=== PATIENT | male | born 1985 | race Caucasian/White ===

== ENCOUNTER 2020-11-18 02:43 | Emergency (ER) | payer OTHER ==
[~2020-11-18] VITALS: Ht 170.2 cm; Wt 81.7 kg
[~2020-11-18 02:43] MED LIST: AZIT250 PO; Bactrim Ds Tab1 EACH PO; CEPH500 PO; CLIN150 PO; CLIN300 PO; CRUTCH4 USE; ERYT333ERA PO; ERYT500 PO; FURO40 PO; HYDACE5 PO; IBUHYD PO; IBUP600 PO; IBUP800 PO; IBUPROFEN/TYLENOL; MUPI2TC TOP; MUPI2TO TOP; NAPR220 PO; NAPR500 PO; NAPR500EC PO; OXYACE5T PO; PENVK500 PO; PERM5TC TOP; POTA10T PO; PRED10 PO; PRED20 PO; PROM25 PO; RXCLIN PO; RXOXYACE PO; SULTRIDS PO; TRAM50 PO; [UNRECOGNIZED DRUG - OTHER]
[2020-11-18] MEDS ORDERED: SUBOXONE 8 MG-1 EACH SL (03:22)
[2020-11-18] MEDS ORDERED: CEFP200 PO (03:33)
== END 2020-11-18 03:43 | disposition home or self-care (01) ==
LOC: ER 02:43
DX: L03.114 Cellulitis of left upper limb (principal); L03.312 Cellulitis of back [any part except buttock and flank]; F17.210 Nicotine dependence, cigarettes, uncomplicated; I10 Essential (primary) hypertension; Z88.4 Allergy status to anesthetic agent
CPT/HCPCS: 99282

== ENCOUNTER 2020-12-21 16:17 | Emergency (ER) | payer OTHER ==
[~2020-12-21] VITALS: Ht 172.7 cm; Wt 69.4 kg
[~2020-12-21 16:17] MED LIST changes: +CEFP200 PO; +SUBOXONE 8 MG-1 EACH SL
[2020-12-21 17:02] LABS: BASOPHILS ABSOLUTE AUTO 0.08 K/mm3 (0.00-0.23); BASOPHILS PERCENT AUTO 1 % (0-2); EOSINOPHILS ABSOLUTE AUTO 0.07 K/mm3 (0.00-0.68); EOSINOPHILS PERCENT AUTO 0 % (0-6); Hematocrit 52.1 % (37.0-53.0); IMMATURE GRAN ABSOLUTE AUTO 0.06 K/mm3 (0.00-0.10); IMMATURE GRAN PERCENT AUTO 0 % (0-1); LYMPHOCYTES ABSOLUTE AUTO 1.61 K/mm3 (0.84-5.20); LYMPHOCYTES PERCENT AUTO 10 % (21-46); MONOCYTES ABSOLUTE AUTO 1.19 K/mm3 (0.16-1.47); MONOCYTES PERCENT AUTO 7 % (4-13); Mean Corpuscular HGB 27.2 pg (26.0-34.0); Mean Corpuscular HGB Conc 30.7 g/dL (31.5-36.5); Mean Corpuscular Volume 89 fL (80-100); Mean Platelet Volume 10.8 fL (9.1-12.4); NEUTROPHILS ABSOLUTE AUTO 13.02 K/mm3 (1.96-9.15); NEUTROPHILS PERCENT AUTO 81 % (41-73); Platelet Count 381 K/mm3 (150-400); RDW Coefficient Variation 13.5 % (11.7-14.2); RDW Standard Deviation 44.1 fL (35.1-46.3); Red Blood Cell Count 5.88 M/mm3 (4.30-5.90); White Blood Cell Count 16.03 K/mm3 (4.00-11.30)
[2020-12-21 17:12] LABS: Alanine Aminotransfer (ALT/SGP 33 U/L (12-78); Albumin/Globulin Ratio 0.9 (0.8-1.8); Alk Phos 134 U/L (50-136); Anion Gap 2 mmol/L (6-16); Aspartate Aminotrans (AST/SGOT 28 U/L (12-37); Bilirubin, Total 0.6 mg/dL (0.1-1.0); Blood Urea Nitrogen 13 mg/dL (8-24); Bun/Creatinine Ratio 13.8 (12.0-20.0); CO2, Blood 33 mmol/L (21-32); Calcium, Blood 10.3 mg/dL (8.5-10.1); Chloride, Blood 101 mmol/L (98-108); Creatinine, Blood 0.94 mg/dL (0.60-1.20); Globulin, Blood 4.6 g/dL (2.2-4.0); Glomerular Filtration Rate >60 (60-); Glucose, Blood 50 mg/dL (70-99); Potassium, Blood 4.1 mmol/L (3.5-5.5); Sodium, Blood 136 mmol/L (136-145); Total Protein, Blood 8.6 g/dL (6.4-8.2)
[2020-12-21] MEDS ORDERED: Doxycycline Mo100 M1 PO (19:54)
[2020-12-21] MEDS ORDERED: IBU800 M1 PO (21:24)
[2020-12-21] MEDS ORDERED: OXYACE7.5T PO (21:24)
[2020-12-21] MEDS ORDERED: ONDA4ODT MM (21:24)
== END 2020-12-21 21:45 | disposition home or self-care (01) ==
LOC: ER 16:17
PROVIDERS: Physician Assistant
DX: N45.1 Epididymitis (principal); I10 Essential (primary) hypertension; Z88.4 Allergy status to anesthetic agent; Z79.899 Other long term (current) drug therapy; F17.210 Nicotine dependence, cigarettes, uncomplicated
CPT/HCPCS: 36415; 76870; 80053; 83690; 85025; 96374; 96375; 99284-25; A9270; J1885; J2405; J3010; J7030

== ENCOUNTER 2022-04-07 00:39 | Emergency (ER) | payer OTHER ==
[~2022-04-07] VITALS: Ht 170.2 cm; Wt 70.3 kg
[~2022-04-07 00:39] MED LIST changes: +Doxycycline Mo100 M1 PO; +IBU800 M1 PO; +ONDA4ODT MM; +OXYACE7.5T PO
[2022-04-07] MEDS ORDERED: CEPHALEXIN500 M2 PO (02:18)
== END 2022-04-07 03:03 | disposition home or self-care (01) ==
LOC: ER 00:39
DX: L03.115 Cellulitis of right lower limb (principal); I10 Essential (primary) hypertension; F17.210 Nicotine dependence, cigarettes, uncomplicated; Z88.4 Allergy status to anesthetic agent
CPT/HCPCS: A9270

== ENCOUNTER 2022-05-09 05:02 | Inpatient (IN) | payer OTHER ==
[~2022-05-09] VITALS: Ht 167.6 cm; Wt 68.5 kg
[~2022-05-09 05:02] MED LIST changes: +CEPHALEXIN500 M2 PO
[2022-05-09 07:01] LABS: BASOPHILS ABSOLUTE AUTO 0.06 K/mm3 (0.00-0.23); BASOPHILS PERCENT AUTO 0 % (0-2); EOSINOPHILS ABSOLUTE AUTO 0.08 K/mm3 (0.00-0.68); EOSINOPHILS PERCENT AUTO 1 % (0-6); Hematocrit 39.4 % (37.0-53.0); Hemoglobin 12.8 g/dL (13.5-17.5); IMMATURE GRAN ABSOLUTE AUTO 0.02 K/mm3 (0.00-0.10); IMMATURE GRAN PERCENT AUTO 0 % (0-1); LYMPHOCYTES ABSOLUTE AUTO 1.29 K/mm3 (0.84-5.20); LYMPHOCYTES PERCENT AUTO 9 % (21-46); MONOCYTES ABSOLUTE AUTO 1.04 K/mm3 (0.16-1.47); MONOCYTES PERCENT AUTO 7 % (4-13); Mean Corpuscular HGB Conc 32.5 g/dL (31.5-36.5); Mean Corpuscular Volume 86 fL (80-100); Mean Platelet Volume 10.3 fL (9.1-12.4); NEUTROPHILS ABSOLUTE AUTO 12.44 K/mm3 (1.96-9.15); NEUTROPHILS PERCENT AUTO 83 % (41-73); Platelet Count 245 K/mm3 (150-400); RDW Coefficient Variation 14.7 % (11.7-14.2); RDW Standard Deviation 46.9 fL (35.1-46.3); Red Blood Cell Count 4.57 M/mm3 (4.30-5.90); White Blood Cell Count 14.93 K/mm3 (4.00-11.30)
[2022-05-09 07:38] LABS: Albumin, Blood 3.9 g/dL (3.4-5.0); Albumin/Globulin Ratio 1.2 (0.8-1.8); Bilirubin, Total 0.6 mg/dL (0.1-1.0); Bun/Creatinine Ratio 34.9 (12.0-20.0); C-Reactive Protein, High Sens. 25.9 mg/L (0.000-3.000); Calcium, Blood 8.7 mg/dL (8.5-10.1); Creatinine, Blood 0.74 mg/dL (0.60-1.20); Globulin, Blood 3.2 g/dL (2.2-4.0); Potassium, Blood 3.6 mmol/L (3.5-5.5); Total Protein, Blood 7.1 g/dL (6.4-8.2)
[2022-05-09] MEDS ORDERED: DEPAKOTE500 M1 PO (10:34)
[2022-05-09] MEDS ORDERED: AMOX875 PO (15:28)
[2022-05-09] MEDS ORDERED: SULTRIDS PO (15:29)
[2022-05-09] MEDS ORDERED: BUSP5 PO (15:29)
[2022-05-09] MEDS ORDERED: Percocet 5-3251 EACH PO (15:30)
--- NOTE | 2022-05-09 15:38 | NUR ---
Discharge Summary A/O, discharging against medical advice. AMA form filled out and signed by patient. Reviewed d/c papers and meds faxed to [facility] per patient request. Escorted by [facility].
== END 2022-05-09 15:41 | disposition left against medical advice (07) | DRG 872 ==
LOC: ER 05:02 → MEDS 09:15
PROVIDERS: Emergency Medicine; ADMIT Family Medicine
DX: A41.9 Sepsis, unspecified organism (principal); L03.115 Cellulitis of right lower limb; F41.9 Anxiety disorder, unspecified; B19.20 Unspecified viral hepatitis C without hepatic coma; F17.210 Nicotine dependence, cigarettes, uncomplicated; F32.A Depression, unspecified; F11.90 Opioid use, unspecified, uncomplicated; I10 Essential (primary) hypertension; Z98.890 Other specified postprocedural states; Z88.4 Allergy status to anesthetic agent; Z79.2 Long term (current) use of antibiotics; Z79.899 Other long term (current) drug therapy
CPT/HCPCS: 36415; 73610; 80053; 83605; 85025; 85651; 86141; 87040; 96365; 96375; 99285-25; A9270; J1885; J7030

== ENCOUNTER 2022-10-22 19:32 | Emergency (ER) | payer OTHER ==
[~2022-10-22] VITALS: Ht 170.2 cm; Wt 70.3 kg
[~2022-10-22 19:32] MED LIST changes: +AMOCLA875 PO; +AMOX875 PO; +BUPRENORPHIN-N1 EAC1 SL; +BUSP5 PO; +DEPAKOTE500 M1 PO; +Percocet 5-3251 EACH PO
[2022-10-22] MEDS ORDERED: METH40 (22:08)
[2022-10-22] MEDS ORDERED: METH40 PO (22:09)
[2022-10-22] MEDS ORDERED: SULTRIDS PO (22:21)
== END 2022-10-22 22:43 ==
LOC: ER 19:32
DX: S61.401A Unspecified open wound of right hand, initial encounter (principal); S61.402A Unspecified open wound of left hand, initial encounter; I10 Essential (primary) hypertension; F17.200 Nicotine dependence, unspecified, uncomplicated; Z88.8 Allergy status to other drugs, medicaments and biological substances; Z86.14 Personal history of Methicillin resistant Staphylococcus aureus infection; X58.XXXA Exposure to other specified factors, initial encounter
CPT/HCPCS: A9270

== ENCOUNTER 2022-11-02 23:50 | Emergency (ER) | payer OTHER ==
[~2022-11-02] VITALS: Ht 170.2 cm; Wt 63.5 kg
[~2022-11-02 23:50] MED LIST changes: +METH40; +METH40 PO
[2022-11-03] MEDS ORDERED: AMOCLA875 PO (00:34)
[2022-11-03] MEDS ORDERED: IBUP800 PO (00:34)
== END 2022-11-03 00:56 | disposition home or self-care (01) ==
LOC: ER 23:50
DX: L03.011 Cellulitis of right finger (principal); I10 Essential (primary) hypertension; F17.200 Nicotine dependence, unspecified, uncomplicated; Z88.4 Allergy status to anesthetic agent; Z79.899 Other long term (current) drug therapy
CPT/HCPCS: 26010; 99283-25; A9270

== ENCOUNTER 2022-11-04 19:11 | Inpatient (IN) | payer OTHER ==
[~2022-11-04] VITALS: Ht 170.2 cm; Wt 68.4 kg
[2022-11-04 20:54] LABS: BASOPHILS ABSOLUTE AUTO 0.06 K/mm3 (0.00-0.23); BASOPHILS PERCENT AUTO 1 % (0-2); EOSINOPHILS ABSOLUTE AUTO 0.12 K/mm3 (0.00-0.68); EOSINOPHILS PERCENT AUTO 1 % (0-6); Hematocrit 38.8 % (37.0-53.0); Hemoglobin 12.3 g/dL (13.5-17.5); IMMATURE GRAN ABSOLUTE AUTO 0.04 K/mm3 (0.00-0.10); IMMATURE GRAN PERCENT AUTO 0 % (0-1); LYMPHOCYTES ABSOLUTE AUTO 1.74 K/mm3 (0.84-5.20); LYMPHOCYTES PERCENT AUTO 16 % (21-46); MONOCYTES ABSOLUTE AUTO 1.03 K/mm3 (0.16-1.47); MONOCYTES PERCENT AUTO 10 % (4-13); Mean Corpuscular HGB 27.1 pg (26.0-34.0); Mean Corpuscular HGB Conc 31.7 g/dL (31.5-36.5); Mean Corpuscular Volume 86 fL (80-100); Mean Platelet Volume 9.9 fL (9.1-12.4); NEUTROPHILS ABSOLUTE AUTO 7.86 K/mm3 (1.96-9.15); NEUTROPHILS PERCENT AUTO 72 % (41-73); Platelet Count 325 K/mm3 (150-400); RDW Coefficient Variation 13.7 % (11.7-14.2); RDW Standard Deviation 42.9 fL (35.1-46.3); Red Blood Cell Count 4.54 M/mm3 (4.30-5.90); White Blood Cell Count 10.85 K/mm3 (4.00-11.30)
[2022-11-04 21:22] LABS: Albumin, Blood 3.4 g/dL (3.4-5.0); Albumin/Globulin Ratio 0.9 (0.8-1.8); Bilirubin, Total 0.3 mg/dL (0.1-1.0); Bun/Creatinine Ratio 24.6 (12.0-20.0); Calcium, Blood 8.8 mg/dL (8.5-10.1); Creatinine, Blood 0.61 mg/dL (0.60-1.20); Globulin, Blood 3.8 g/dL (2.2-4.0); Potassium, Blood 3.9 mmol/L (3.5-5.5); Total Protein, Blood 7.2 g/dL (6.4-8.2)
[2022-11-05 06:25] LABS: BASOPHILS ABSOLUTE AUTO 0.05 K/mm3 (0.00-0.23); BASOPHILS PERCENT AUTO 1 % (0-2); EOSINOPHILS ABSOLUTE AUTO 0.13 K/mm3 (0.00-0.68); EOSINOPHILS PERCENT AUTO 2 % (0-6); Hematocrit 37.6 % (37.0-53.0); Hemoglobin 11.8 g/dL (13.5-17.5); IMMATURE GRAN ABSOLUTE AUTO 0.04 K/mm3 (0.00-0.10); IMMATURE GRAN PERCENT AUTO 1 % (0-1); LYMPHOCYTES ABSOLUTE AUTO 1.91 K/mm3 (0.84-5.20); LYMPHOCYTES PERCENT AUTO 24 % (21-46); MONOCYTES ABSOLUTE AUTO 0.84 K/mm3 (0.16-1.47); MONOCYTES PERCENT AUTO 11 % (4-13); Mean Corpuscular HGB 27.4 pg (26.0-34.0); Mean Corpuscular HGB Conc 31.4 g/dL (31.5-36.5); Mean Corpuscular Volume 87 fL (80-100); Mean Platelet Volume 10.3 fL (9.1-12.4); NEUTROPHILS ABSOLUTE AUTO 4.99 K/mm3 (1.96-9.15); NEUTROPHILS PERCENT AUTO 63 % (41-73); Platelet Count 308 K/mm3 (150-400); RDW Coefficient Variation 13.7 % (11.7-14.2); RDW Standard Deviation 43.8 fL (35.1-46.3); Red Blood Cell Count 4.31 M/mm3 (4.30-5.90); White Blood Cell Count 7.96 K/mm3 (4.00-11.30)
[2022-11-05 06:49] LABS: Magnesium, Blood 2.1 mg/dL (1.6-2.4)
[2022-11-05 06:50] LABS: Albumin, Blood 2.7 g/dL (3.4-5.0); Anion Gap 0 mmol/L (6-16); Blood Urea Nitrogen 16 mg/dL (8-24); Bun/Creatinine Ratio 22.8 (12.0-20.0); CO2, Blood 35 mmol/L (21-32); Calcium, Blood 8.5 mg/dL (8.5-10.1); Chloride, Blood 105 mmol/L (98-108); Glomerular Filtration Rate 122 (60-); Glucose, Blood 99 mg/dL (70-99); Phosphorus, Blood 3.4 mg/dL (2.5-4.9); Potassium, Blood 3.9 mmol/L (3.5-5.5); Sodium, Blood 140 mmol/L (136-145)
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
--- NOTE | 2022-11-05 17:18 | NUR ---
SHIFT SUMMARY PT AOX4, VERY LETHARGIC AT THE START OF THE SHIFT AND IT REMAINED THAT WAY FOR A MAJORITY OF THE SHIFT. HE WAS AROUSABLE BUT SLEEPING MOST OF THE DAY, NO REQUESTING ANYTHING. DR. BRYANT CAME TO EVALUATE HIS R FINGER AND DECIDED TO DO SURGERY. PT IS CURRENTLY DOWN IN PRE-OP, PREPARING FOR SURGERY THIS EVENING. ALL NECESSARY PAPERWORK WAS COMPLETED. HE DID GET A BIT IRRITABLE WITH THE PROVIDER AND THE NURSE AT TIMES THIS AFTERNOON. HE ALSO HAS AN EX GF THAT CALLS FOR HIM. HE TOLD THE NURSE NOT TO LET THE EX GF INTO HIS ROOM WHILE HE IS HERE. THE NURSE ASKED IF HE NEEDED TO SPEAK WITH SECURITY AND HE DENIED THAT REQUEST. PT IS NOW OUT OF THE ROOM AND MAY NOT RETURN BEFORE THE END OF THE SHIFT. WILL REPORT TO ONCOMING NURSE.
--- NOTE | 2022-11-05 19:29 | NUR ---
PATIENT BACK FROM PACU. INDEPENDENT IN ROOM. KRISTYN
--- NOTE | 2022-11-05 22:33 | NUR ---
HOSPITALIST SAYRA FISH ORDERED NICOTINE PATCH 21 MG. PATIENT CEDS 1/2 PACK. PATIENT REPORTED RIGHT HAND FINGER PAIN FROM I&D TODAY. SAYRA FISH ORDERED NORCO 5/325 MG X ONE.
[2022-11-06 00:22] LABS: Vancomycin, Trough 10.2 ug/mL (5.0-10.0)
--- NOTE | 2022-11-06 04:17 | NUR ---
SHIFT SUMMARY PATIENT HAD NO ACUTE CHANGES. AXOX 4 AND INDEPENDENT IN ROOM. PIV REMAINS INTACT. I&D PROCEDURE ON DAY SHIFT AND PATIENT BACK IN ROOM ON PULMONARY NURSE PRACTITIONER. REPORTED RIGHT HAND PAIN AND HOSPITALIST SAYRA RESTAURANT AND BAR MANAGER ORDERED NORCO 5/325 MG X ONE. HX DRUG USE AND ON SCHEDULE METHADONE DAILY. PATIENT PULLED HAND DRESSING GAUZE OFF AND WANTS IT LEFT OFF. DENIES CHEST PAIN, SOB, AND N/V. ANXIOUS IN ROOM T/O SHIFT. NICOTINE PATCH 21 MG ORDERED PER SAYRA FISH. CALL LIGHT IN REACH. BED IN LOWEST POSITION. WILL CONTINUE TO MONITOR UNTIL DAY SHIFT NURSE ASSUMES CARE.
[2022-11-06 05:36] LABS: BASOPHILS ABSOLUTE AUTO 0.03 K/mm3 (0.00-0.23); BASOPHILS PERCENT AUTO 1 % (0-2); EOSINOPHILS ABSOLUTE AUTO 0.12 K/mm3 (0.00-0.68); EOSINOPHILS PERCENT AUTO 2 % (0-6); Hematocrit 36.1 % (37.0-53.0); Hemoglobin 11.3 g/dL (13.5-17.5); IMMATURE GRAN ABSOLUTE AUTO 0.01 K/mm3 (0.00-0.10); IMMATURE GRAN PERCENT AUTO 0 % (0-1); LYMPHOCYTES PERCENT AUTO 37 % (21-46); MONOCYTES ABSOLUTE AUTO 0.56 K/mm3 (0.16-1.47); MONOCYTES PERCENT AUTO 9 % (4-13); Mean Corpuscular HGB 27.5 pg (26.0-34.0); Mean Corpuscular HGB Conc 31.3 g/dL (31.5-36.5); Mean Corpuscular Volume 88 fL (80-100); Mean Platelet Volume 10.2 fL (9.1-12.4); NEUTROPHILS ABSOLUTE AUTO 3.11 K/mm3 (1.96-9.15); NEUTROPHILS PERCENT AUTO 52 % (41-73); Platelet Count 303 K/mm3 (150-400); RDW Coefficient Variation 13.7 % (11.7-14.2); RDW Standard Deviation 44.2 fL (35.1-46.3); Red Blood Cell Count 4.11 M/mm3 (4.30-5.90); White Blood Cell Count 6.03 K/mm3 (4.00-11.30)
[2022-11-06 06:51] LABS: Albumin, Blood 2.5 g/dL (3.4-5.0); Anion Gap 2 mmol/L (6-16); Blood Urea Nitrogen 14 mg/dL (8-24); Bun/Creatinine Ratio 20.1 (12.0-20.0); CO2, Blood 32 mmol/L (21-32); Calcium, Blood 8.4 mg/dL (8.5-10.1); Chloride, Blood 104 mmol/L (98-108); Glomerular Filtration Rate 122 (60-); Glucose, Blood 106 mg/dL (70-99); Potassium, Blood 4.4 mmol/L (3.5-5.5); Sodium, Blood 138 mmol/L (136-145)
--- NOTE | 2022-11-06 16:39 | NUR ---
SHIFT SUMMARY PATIENT IS ALERT AND ORIENTED. PATIENT HAS HAD NO ACUTE EVENTS THIS SHIFT. VITAL SIGNS REVIEWED. PATIENT HAS CELLULITIS OF RIGHT HAND AND HAS REPORTED PAIN IN RIGHT HAND. PATIENT HAS NOT COMPLAINED OF SOB, NAUSEA OR VOMITTING THIS SHIFT. PATIENT TO BECOME NPO AFTER MIDNIGHT FOR AN I/N/D ON RIGHT HAND. WILL RELAY INFO TO [employer] OPERATIONS SUPERINTENDENT.
[2022-11-06 22:31] LABS: U Amphetamine Screen DETECTED; U Barbituate Screen Not Detected; U Benzodiazapine Screen Not Detected; U Buprenorphine Screen Not Detected; U Cannabinoids Screen DETECTED; U Cocaine Screen Not Detected; U Methadone Screen DETECTED; U Methamphetamine Screen DETECTED; U Opiates Screen DETECTED; U Oxycodone Screen Not Detected; U Phencyclidine Screen Not Detected; U Propoxyphene Screen Not Detected
[2022-11-06 23:28] LABS: Vancomycin, Trough 17.3 ug/mL (5.0-10.0)
--- NOTE | 2022-11-06 23:39 | NUR ---
HOSPITALIST SAYRA FISH ORDERED ATARAX 25 MG X ONE FOR INSOMNIA.
--- NOTE | 2022-11-07 04:06 | NUR ---
SHIFT SUMMARY PATIENT HAD NO ACUTE CHANGES. AXOX 4 AND INDEPENDENT IN ROOM. REPORTED RIGHT HAND PAIN X ONE AND NORCO 5/325 MG GIVEN PER EMAR. REPORTED ANXIETY AND PO ATIVAN 0.5 MG GIVEN. PATIENT REPORTED INSOMNIA AND ATARAX 25 MG GIVEN X ONE. PATIENT ABLE TO SLEEP. DENIES CHEST PAIN, SOB, AND N/V. PIV REMAINS INTACT. IV ABX INFUSED. NPO FOR I&D PROCEDURE. CALL LIGHT IN REACH. BED IN LOWEST POSITION. WILL CONTINUE TO MONITOR UNTIL DAY SHIFT NURSE ASSUMES CARE.
--- NOTE | 2022-11-07 17:00 | NUR ---
SHIFT SUMMARY NO ACUTE CHANGES DURING SHIFT. PT ALERT AND ORIENTED,CALLS APPROPRIATELY. PT REMAINS ON RA, INDEPENDENT IN ROOM. PT DOWN FOR I/D TODAY TO THE RIGHT FINGER. PT MEDICATED WITH PRN MEDCIATIONS MULTIPLE TIMES TODAY FOR PAIN AND ANXIETY. WILL CONTINUE TO MONITOR. CALL LIGHT WITHIN REACH.
[2022-11-07 23:15] LABS: Vancomycin, Trough 16.8 ug/mL (5.0-10.0)
--- NOTE | 2022-11-08 02:57 | NUR ---
SHIFT SUMMARY NOC PT A/O X 4. PT ANXIOUS WITH FLAT AFFECT. PT HAD I/D TO BY DR MCGOWAN YESTERDAY FOR R HAND CELLULLITIS. SURGICAL DRESSING IN PLACE C/D/I. PT HAD C/O OF PAIN AND WAS MEDICATED PER EMAR. PT REQUESTED SNACKS REPEATEDLY DURING SHIFT. PT ALSO KEPT ASKING FOR MORE DOSES OF ATIVAN WHICH THEY CAN HAVE TID. PT HAS HAD TRENDING ELEVATED BP, WILL CALL HOSPITALIST TO OBTAIN PRN BP RX. PT IS CURRENTLY RESTING WITH BED IN LOWEST POSITION, AND CALL LIGHT WITHIN REACH.
--- NOTE | 2022-11-08 07:26 | NUR ---
DURING BED SIDE SHIFT REPORT PT BECAME UPSET WHEN INFORMED HIS METHADONE WAS SCHEULED AT 0900 THIS AM. PT ASKED TO HAVE IT AT 0630. PT ASKED FOR RN'S TO LEAVE AND STAY AWAY FROM HIM FAR POSSIBLE. PT STATED HE WAS GOING TO CALL HIS "METHADONE DOCTOR AND HAVE HIM CALL HERE TO HAVE IT RESCHEDULED."
--- NOTE | 2022-11-08 16:08 | NUR ---
[facility]BAL FROM [facility] FOR DAILY WOUND CARE: SOAK OLD DRESSING TO REMOVE DRIED DRESSING, CLEANSE W/DWC, APPLY XEROFORM TO WOUND BED, COVER WITH 4X4 GAUZE, SECURE WITH TONY WRAP.
--- NOTE | 2022-11-08 17:05 | NUR ---
SHIFT SUMMARY- RN PERFORMED WOUND CARE PER ORDERS. PT'S PAIN WELL CONTROLLED PER FLACC SCALE THIS SHIFT. PT REPORTS HIS PAIN IS MODERATELY CONTROLLED. MANY TIMES THIS SHIFT PT WOULD ASK FOR MORE PAIN MEDS, AND MINUTES LATER PT WOULD BE ASLEEP AND FALLING OVER IN HIS BED/ON THE SIDE OF HIS BED. PT WAS IRRITABLE AND DEMANDING AT THE BEGINNING OF SHIFT THIS AM. RN EXPLAINED STAFF WOULD NOT TOLERATE THIS BEHAVIOR/TREATMENT. PT THEN BEHAVED SOMEWHAT MORE APPROPRIATELY.
--- NOTE | 2022-11-09 04:54 | NUR ---
SHIFT SUMMARY NOC PT A/O X 4. PT WAS UPSET DURING SHIFT CHANGE THAT SLEEPING PILL WAS NOT IN EMAR AND BECAME VERBALLY ABUSIVE TO STAFF. PT THREATENED TO CALL [employer] TO INFORM THEM THAT WE WOULD NOT GIVE PT MEDICATION THEY REQUESTED. PT THEN THREATENED TO LEAVE AMA. PAPERWORK FOR AMA WAS PROVIDED AND PT REFUSED TO LEAVE AMA. SECURITY WAS CALLED AND PT WAS TALKED TO AND SITUATION WAS DEESCALATED. PT BECAME MORE CALM AND COOPERATIVE WITH CARE. PT DID NOT HAVE ANY OTHER PROBLEMS DURING SHIFT. PT IS CURRENTLY RESTING WITH BED IN LOWEST POSITION, AND CALL LIGHT WITHIN REACH.
--- NOTE | 2022-11-09 18:01 | NUR ---
SHIFT SUMMARY- RN WAS OUTSIDE IN THE HALLWAY WHEN DR. DE ANDA WALKED IN ON PT WHILE HE HAD HIS HANDS BY HIS LEGS WITH A NEEDLE. MD ASKED PT WHAT WAS BY HIS LEG AND PT TUCKED THE NEEDLE UNDER HIS LEGS IN HIS BED. MD INFORMED RN AND RN INFORMED MEDICAL RECORDS ANALYST, CHARGE NURSEX2, AND MD SPENCER.
--- NOTE | 2022-11-09 18:05 | NUR ---
SHIFT SUMMARY- PT ANXIOUS/IRRITATED THIS SHIFT, BUT SOMEWHAT COOPERATIVE. PT TOLERATED DRESSING CHANGE MODERATELY WELL THIS SHIFT. RN FOUND PT MULTIPLE TIMES THIS SHIFT SLUMPED OVER IN HIS BED AND FELL ASLEEP SITTING UP.
[2022-11-09 22:58] LABS: Creatinine, Blood 0.75 mg/dL (0.60-1.20); Vancomycin, Trough 19.3 ug/mL (5.0-10.0)
--- NOTE | 2022-11-10 04:45 | NUR ---
SHIFT SUMMARY NOC PT A/O X 4. PT PLEASANT AND COOPERATIVE WITH CARE. PT DRESSING ON R HAND IS C/D/I. PT HAD C/O OF PAIN IN R HAND AND WAS MEDICATED PER EMAR. PT RECEIVED LAST DOSE OF TORADOL AND SEEMS CONCERNED ABOUT BEING ABLE TO MANAGE PAIN. HOSPITALIST WAS NOTIFIED BUT GAVE INSTRUCTIONS TO PASS ALONG TO DAY SHIFT RN. PT SAID THEY UNDERSTOOD AND WOULD ASK ROUNDING HOSPITALIST ABOUT PRESCRIBING NEW PAIN RX. NO ACUTE CHANGED TO REPORT. PT IS CURRENTLY RESTING WITH BED IN LOWEST POSITION, AND CALL LIGHT WITHIN REACH.
[2022-11-10] MEDS ORDERED: IBUP800 PO (12:22)
[2022-11-10] MEDS ORDERED: GABA100 PO (12:23)
[2022-11-10] MEDS ORDERED: ACET500 PO (12:23)
[2022-11-10] MEDS ORDERED: HYDHCL25 PO (12:24)
[2022-11-10] MEDS ORDERED: VISBIOME 112.51 EACH PO (12:25)
[2022-11-10] MEDS ORDERED: BACTRIM DS TAB1 EAC6 PO (12:28)
--- NOTE | 2022-11-10 14:16 | NUR ---
PT SIGNED ALL DC PAPERWORK. NEW RX FAXED TO [facility] PER PT'S REQUEST. RN WENT OVER ALL DC INSTRUCTIONS INCLUDING REFERRAL TO WOUND CLINIC. ALL QUESTIONS ANSWERED. PT LEFT WITH ALL BELONGINGS. WHEN HOUSE KEEPING WAS CLEANING PT'S ROOM AFTER HE WAS DC, A ZIPLOCK BAGGY OF "WHITE SUBSTANCE" WAS FOUND IN PT'S BATHROOM. MULU PEREZ DISPOSED OF SUBSTANCE APPROPRIATELY.
--- NOTE | 2022-11-10 16:19 | NUR ---
WOUND CARE WOUND CARE DEMOSNSTRATION GIVEN TO PT ON DRESSING CHANGE. R THIRD FINGER CLEANSED WITH NS, DRIED WITH 4X4 GAUZE, XEROFORM TO WOUND BED, COVERED ABD, GAUZE, TONY. PT ABLE TO VERBALIZE INSTUCTION AND TEACH BACK TO THIS RN
== END 2022-11-10 13:13 | disposition home or self-care (01) | DRG 603 ==
LOC: ER 19:11 → MEDS 22:30
PROVIDERS: Emergency Medicine; Internal Medicine; Orthopaedic Surgery; ADMIT Internal Medicine
PROC: 0HBQXZZ Excision of Finger Nail, External Approach (ICD-10-PCS; principal; 2022-11-05 18:00)
PROC: 0HBFXZZ Excision of Right Hand Skin, External Approach (ICD-10-PCS; 2022-11-07)
DX: L03.011 Cellulitis of right finger (principal); F15.10 Other stimulant abuse, uncomplicated; G89.4 Chronic pain syndrome; F41.9 Anxiety disorder, unspecified; F12.10 Cannabis abuse, uncomplicated; F11.10 Opioid abuse, uncomplicated; B19.20 Unspecified viral hepatitis C without hepatic coma; I10 Essential (primary) hypertension; F32.A Depression, unspecified; F17.210 Nicotine dependence, cigarettes, uncomplicated; Z98.890 Other specified postprocedural states; Z79.899 Other long term (current) drug therapy; Z79.2 Long term (current) use of antibiotics; Z86.14 Personal history of Methicillin resistant Staphylococcus aureus infection; Z71.51 Drug abuse counseling and surveillance of drug abuser
CPT/HCPCS: 36415; 73120; 80053; 80069; 80202; 82565; 83735; 85025; 96365; 96375; 99284-25; A9270; J0295; J1100; J1885; J2060; J2250; J2310; J2405; J2704; J2795; J3010; J3370; J7050; J7120

== ENCOUNTER → 2022-11-12 | Emergency (ER) | payer OTHER ==
[~2022-11-12] VITALS: Ht 170.2 cm; Wt 68.0 kg
[~2022-11-12] MED LIST changes: +ACET500 PO; +BACTRIM DS TAB1 EAC6 PO; +GABA100 PO; +HYDHCL25 PO; +VISBIOME 112.51 EACH PO
[2022-11-12 16:53] VITALS: BP 183/110
== END ==
LOC: ER 16:27
DX: Z76.0 Encounter for issue of repeat prescription (principal); Z79.899 Other long term (current) drug therapy; I10 Essential (primary) hypertension; F17.200 Nicotine dependence, unspecified, uncomplicated
CPT/HCPCS: 99281; A9270

== ENCOUNTER 2022-11-28 17:34 | Emergency (ER) | payer OTHER ==
[~2022-11-28] VITALS: Ht 170.2 cm; Wt 68.0 kg
[2022-11-28 18:17] VITALS: BP 133/96
== END 2022-11-28 22:53 | disposition home or self-care (01) ==
LOC: ER 17:34
DX: Z76.0 Encounter for issue of repeat prescription (principal); Z79.899 Other long term (current) drug therapy; F17.200 Nicotine dependence, unspecified, uncomplicated
CPT/HCPCS: 99281; A9270

== ENCOUNTER 2023-02-01 16:54 | Emergency (ER) | payer OTHER ==
[~2023-02-01] VITALS: Ht 167.6 cm; Wt 70.3 kg
[2023-02-01 17:06] VITALS: BP 154/93
== END 2023-02-01 18:59 | disposition home or self-care (01) ==
LOC: ER 16:54
DX: F11.90 Opioid use, unspecified, uncomplicated (principal); F17.200 Nicotine dependence, unspecified, uncomplicated; Z79.899 Other long term (current) drug therapy
CPT/HCPCS: 99283; A9270

== ENCOUNTER 2023-02-26 14:40 | Emergency (ER) | payer OTHER ==
[~2023-02-26] VITALS: Ht 170.2 cm; Wt 68.0 kg
[2023-02-26 14:42] VITALS: BP 152/91
== END 2023-02-26 15:15 | disposition home or self-care (01) ==
LOC: ER 14:40
DX: F11.90 Opioid use, unspecified, uncomplicated (principal); R11.2 Nausea with vomiting, unspecified; Z76.0 Encounter for issue of repeat prescription; F32.A Depression, unspecified; F41.9 Anxiety disorder, unspecified; Z79.899 Other long term (current) drug therapy; Z86.19 Personal history of other infectious and parasitic diseases; F17.200 Nicotine dependence, unspecified, uncomplicated
CPT/HCPCS: 99284; A9270

== ENCOUNTER 2023-03-19 22:44 | Emergency (ER) | payer OTHER ==
[~2023-03-19] VITALS: Ht 167.6 cm; Wt 70.3 kg
[2023-03-19 23:11] VITALS: BP 157/102
== END 2023-03-20 01:02 | disposition home or self-care (01) ==
LOC: ER 22:44
DX: Z76.0 Encounter for issue of repeat prescription (principal); Z79.899 Other long term (current) drug therapy; I10 Essential (primary) hypertension; F17.210 Nicotine dependence, cigarettes, uncomplicated
CPT/HCPCS: 99281

== ENCOUNTER 2023-04-05 15:54 | Emergency (ER) | payer OTHER ==
[~2023-04-05] VITALS: Ht 170.2 cm; Wt 70.3 kg
[2023-04-05 16:10] VITALS: BP 171/90
== END 2023-04-05 17:09 | disposition home or self-care (01) ==
LOC: ER 15:54
DX: Z76.0 Encounter for issue of repeat prescription (principal); F17.210 Nicotine dependence, cigarettes, uncomplicated; I10 Essential (primary) hypertension; Z86.19 Personal history of other infectious and parasitic diseases; Z79.1 Long term (current) use of non-steroidal anti-inflammatories (NSAID); Z79.899 Other long term (current) drug therapy
CPT/HCPCS: 99281; A9270

== ENCOUNTER 2023-04-06 10:27 | Emergency (ER) | payer OTHER ==
[~2023-04-06] VITALS: Ht 167.6 cm; Wt 70.3 kg
[2023-04-06 10:58] VITALS: BP 156/96
[2023-04-07] MEDS ORDERED: BACTRIM DS TAB1 EAC1 PO (19:56)
[2023-04-07] MEDS ORDERED: CEPH500 PO (19:56)
== END 2023-04-06 11:40 | disposition home or self-care (01) ==
LOC: ER 10:27
DX: Z76.0 Encounter for issue of repeat prescription (principal); Z79.1 Long term (current) use of non-steroidal anti-inflammatories (NSAID); Z79.899 Other long term (current) drug therapy; I10 Essential (primary) hypertension; Z86.19 Personal history of other infectious and parasitic diseases; F17.210 Nicotine dependence, cigarettes, uncomplicated
CPT/HCPCS: 99283; A9270

== ENCOUNTER 2023-04-07 15:40 | Emergency (ER) | payer OTHER ==
[~2023-04-07] VITALS: Ht 170.2 cm; Wt 70.3 kg
[2023-04-07 16:06] VITALS: BP 127/84
[2023-04-07] MEDS ORDERED: CEPH500 PO (19:56)
[2023-04-07] MEDS ORDERED: BACTRIM DS TAB1 EAC1 PO (19:56)
== END 2023-04-07 20:14 | disposition home or self-care (01) ==
LOC: ER 15:40
DX: L03.116 Cellulitis of left lower limb (principal); L03.115 Cellulitis of right lower limb; F11.90 Opioid use, unspecified, uncomplicated; I10 Essential (primary) hypertension; F17.210 Nicotine dependence, cigarettes, uncomplicated; Z79.899 Other long term (current) drug therapy
CPT/HCPCS: 73562-LT; 73562-RT; 99283-25; A9270

== ENCOUNTER 2023-04-18 12:17 | Emergency (ER) | payer OTHER ==
[~2023-04-18] VITALS: Ht 167.6 cm; Wt 68.0 kg
[~2023-04-18 12:17] MED LIST changes: +BACTRIM DS TAB1 EAC1 PO
[2023-04-18 12:31] VITALS: BP 139/86
[2023-04-18] MEDS ORDERED: CEPHALEXIN500 M2 PO (12:36)
[2023-04-18] MEDS ORDERED: SULTRIDS PO (12:36)
== END 2023-04-18 12:38 | disposition home or self-care (01) ==
LOC: ER 12:17
DX: L03.116 Cellulitis of left lower limb (principal); L03.115 Cellulitis of right lower limb; F11.90 Opioid use, unspecified, uncomplicated; I10 Essential (primary) hypertension; F17.210 Nicotine dependence, cigarettes, uncomplicated; F41.9 Anxiety disorder, unspecified; F32.A Depression, unspecified
CPT/HCPCS: 99283

== ENCOUNTER 2023-04-26 14:20 | Emergency (ER) | payer OTHER ==
[~2023-04-26] VITALS: Ht 170.2 cm; Wt 70.3 kg
[2023-04-26 14:35] VITALS: BP 151/97
[2023-04-26] MEDS ORDERED: METH40 PO (14:37)
== END 2023-04-26 15:04 | disposition home or self-care (01) ==
LOC: ER 14:20
DX: Z76.0 Encounter for issue of repeat prescription (principal); F11.90 Opioid use, unspecified, uncomplicated; F17.210 Nicotine dependence, cigarettes, uncomplicated
CPT/HCPCS: 99283; A9270

== ENCOUNTER 2024-04-23 02:45 | Emergency (ER) | payer OTHER ==
[~2024-04-23] VITALS: Ht 167.6 cm; Wt 73.5 kg
[2024-04-23 03:04] VITALS: BP 127/99
[2024-04-23] MEDS ORDERED: GABAPENTIN600 MG PO (03:08)
[2024-04-23] MEDS ORDERED: CLON.2 PO (03:18)
[2024-04-23] MEDS ORDERED: GABA300 PO (03:44)
[2024-04-23] MEDS ORDERED: Gabapentin 300 MG Cap PO ONE (03:45)
[2024-04-23] MEDS ORDERED: buprenorphine HCL 2 MG TAB.SUBL SL ONE (03:45)
[2024-05-01] MEDS ORDERED: BUPRENORPHINE HC8 MG SL (05:06)
[2024-05-01] MEDS ORDERED: DEPAKOTE500 M2 PO (05:07)
== END 2024-04-23 03:50 | disposition home or self-care (01) ==
LOC: ER 02:45
DX: T15.91XA Foreign body on external eye, part unspecified, right eye, initial encounter (principal); Z76.0 Encounter for issue of repeat prescription; I10 Essential (primary) hypertension; F17.210 Nicotine dependence, cigarettes, uncomplicated; Z79.899 Other long term (current) drug therapy
CPT/HCPCS: 99281; A9270